=== PATIENT | male | born 1945 | race Caucasian/White ===

== ENCOUNTER 2019-12-24 07:48 | Day surgery (SDC) | payer MEDICARE, BC ==
[2019-12-24] VITALS (13 sets, daily range): BP systolic 113–139; BP diastolic 72–93
[~2019-12-24] VITALS: Ht 177.8 cm; Wt 139.4 kg
[~2019-12-24 07:48] MED LIST: ALLO100T PO; ATEN-169 PO; ATOR20TA PO; CARV-50 PO; DIGO125T PO; FENO145T38 PO; FURO-149 PO; INSU100V15 SQ; POTA20TA84 PO
[2019-12-24] MEDS ORDERED: MIDAZolam 1mg/ml 10ml vial IV ONE (09:00)
[2019-12-24] MEDS ORDERED: fentaNYL/PF 50MCG/1 ML 2ML syringe IV ONE (09:00)
[2019-12-24] MEDS ORDERED: normal saline 1000ml 1,000 ML IV SCH (09:00)
[2019-12-24] MEDS ORDERED: GLIP10TA11 PO (09:11)
[2019-12-24] MEDS ORDERED: RIVA20TA PO (09:11)
[2019-12-24] MEDS ORDERED: DIGO250T PO (09:11)
[2019-12-24] MEDS ORDERED: VALS80TA32 PO (09:11)
[2019-12-24] MEDS ORDERED: ALLO100T15 PO (09:11)
[2019-12-24] MEDS ORDERED: AMIO200T27 PO (09:11)
[2019-12-24 09:20] LABS: BASOPHILS # (AUTO) 0.1 X10'3 (0-0.2); BASOPHILS % (AUTO) 1.1 % (0-1); EOSINOPHILS # (AUTO) 0.4 X10'3 (0-0.9); EOSINOPHILS % (AUTO) 5.4 % (0-6); HEMATOCRIT 48.6 % (42.0-52.0); LYMPHOCYTES # (AUTO) 1.5 X10'3 (1.1-4.8); LYMPHOCYTES % (AUTO) 22.7 % (21-51); MEAN CORPUSCULAR HEMOGLOBIN 29.2 PG (27.0-31.0); MEAN CORPUSCULAR HGB CONC 32.9 g/dL (33.0-36.5); MEAN CORPUSCULAR VOLUME 88.9 FL (78-98); MONOCYTES # (AUTO) 0.6 X10'3 (0-0.9); MONOCYTES % (AUTO) 8.1 % (2-12); NEUTROPHILS # (AUTO) 4.3 X10'3 (1.8-7.7); NEUTROPHILS % (AUTO) 62.7 % (42-75); PLATELET COUNT 194 X10'3 (140-440); RED BLOOD COUNT 5.46 X10'6 (4.70-6.10); RED CELL DISTRIBUTION WIDTH 15.4 % (11.5-14.5); WHITE BLOOD COUNT 6.8 X10'3 (4.5-11.0)
[2019-12-24 09:35] LABS: ALBUMIN 3.3 G/DL (3.4-5.0); ANION GAP 11 (8-16); BLOOD UREA NITROGEN 47 MG/DL (7-18); CALCIUM 8.8 MG/DL (8.5-10.1); CHLORIDE 106 MMOL/L (99-107); CREATININE 1.74 MG/DL (0.60-1.10); GLUCOSE 99 MG/DL (70-104); POTASSIUM 4.4 MMOL/L (3.5-5.1); SODIUM 143 MMOL/L (135-145); TOTAL CARBON DIOXIDE 26.2 MMOL/L (24-32); eGFR 39 ML/MIN
== END 2019-12-24 12:27 | disposition home or self-care (01) ==
LOC: SSTAY O 07:48
PROVIDERS: ATTEND Internal Medicine Cardiovascular Disease
DX: I48.91 Unspecified atrial fibrillation (principal); I42.0 Dilated cardiomyopathy; I11.0 Hypertensive heart disease with heart failure; I50.9 Heart failure, unspecified; J45.909 Unspecified asthma, uncomplicated; E66.01 Morbid (severe) obesity due to excess calories; Z68.41 Body mass index [BMI] 40.0-44.9, adult; Z98.890 Other specified postprocedural states; Z79.899 Other long term (current) drug therapy; Z88.1 Allergy status to other antibiotic agents
CPT/HCPCS: 36415; 80048; 83735; 85025; 85610; 92960; 93005; 94760; J2250; J3010; J7030

== ENCOUNTER 2020-03-24 08:59 | Day surgery (SDC) | payer MEDICARE, BC ==
[2020-03-24] VITALS (10 sets, daily range): BP systolic 125–159; BP diastolic 69–90
[~2020-03-24] VITALS: Ht 177.8 cm; Wt 139.8 kg
[~2020-03-24 08:59] MED LIST changes: -ALLO100T PO; +ALLO100T15 PO; +AMIO200T27 PO; -ATEN-169 PO; -DIGO125T PO; +DIGO250T PO; +GLIP10TA11 PO; +RIVA20TA PO; +VALS80TA32 PO
[2020-03-24] MEDS ORDERED: RIVA15TA PO (09:23)
[2020-03-24] MEDS ORDERED: GLIP5TAB26 PO (09:23)
[2020-03-24] MEDS ORDERED: MULT-1085 PO (09:24)
[2020-03-24] MEDS ORDERED: MIDAZolam 1mg/ml 10ml vial IV ONE (09:30)
[2020-03-24] MEDS ORDERED: fentaNYL/PF 50MCG/1 ML 2ML syringe IV ONE (09:30)
[2020-03-24] MEDS ORDERED: normal saline 1000ml 1,000 ML IV SCH (09:30)
[2020-03-24 10:03] LABS: BASOPHILS # (AUTO) 0.1 X10'3 (0-0.2); EOSINOPHILS # (AUTO) 0.3 X10'3 (0-0.9); EOSINOPHILS % (AUTO) 4.3 % (0-6); HEMATOCRIT 42.8 % (42.0-52.0); HEMOGLOBIN 14.2 g/dl (14.0-17.9); LYMPHOCYTES # (AUTO) 1.6 X10'3 (1.1-4.8); LYMPHOCYTES % (AUTO) 24.9 % (21-51); MEAN CORPUSCULAR HEMOGLOBIN 30.5 PG (27.0-31.0); MEAN CORPUSCULAR HGB CONC 33.2 g/dL (33.0-36.5); MEAN PLATELET VOLUME 8.2 FL (7.4-10.4); MONOCYTES # (AUTO) 0.6 X10'3 (0-0.9); MONOCYTES % (AUTO) 9.1 % (2-12); NEUTROPHILS # (AUTO) 3.9 X10'3 (1.8-7.7); NEUTROPHILS % (AUTO) 60.7 % (42-75); PLATELET COUNT 199 X10'3 (140-440); RED BLOOD COUNT 4.65 X10'6 (4.70-6.10); RED CELL DISTRIBUTION WIDTH 15.2 % (11.5-14.5); WHITE BLOOD COUNT 6.4 X10'3 (4.5-11.0)
[2020-03-24 10:14] LABS: ALBUMIN 2.9 G/DL (3.4-5.0); ANION GAP 6 (8-16); BLOOD UREA NITROGEN 37 MG/DL (7-18); BUN/CREATININE RATIO 21.8 (5.4-32.0); CALCIUM 8.6 MG/DL (8.5-10.1); CHLORIDE 104 MMOL/L (99-107); GLUCOSE 151 MG/DL (70-104); MAGNESIUM 1.7 MG/DL (1.5-2.4); POTASSIUM 4.2 MMOL/L (3.5-5.1); SODIUM 139 MMOL/L (135-145); TOTAL CARBON DIOXIDE 28.9 MMOL/L (24-32); eGFR 40 ML/MIN
== END 2020-03-24 13:15 | disposition home or self-care (01) ==
LOC: SSTAY O 08:59
PROVIDERS: ATTEND Internal Medicine Cardiovascular Disease
DX: I48.19 Other persistent atrial fibrillation (principal); I11.0 Hypertensive heart disease with heart failure; I50.9 Heart failure, unspecified; I42.0 Dilated cardiomyopathy; J45.909 Unspecified asthma, uncomplicated; E66.01 Morbid (severe) obesity due to excess calories; Z68.41 Body mass index [BMI] 40.0-44.9, adult; Z79.899 Other long term (current) drug therapy; Z79.4 Long term (current) use of insulin; Z88.1 Allergy status to other antibiotic agents; Z98.890 Other specified postprocedural states
CPT/HCPCS: 36415; 80048; 82948; 83735; 85025; 85610; 92960; 93005; J2250; J3010; J7030

== ENCOUNTER 2023-07-31 12:32 | Inpatient (IN) | payer MEDICARE, BC ==
[~2023-07-31] VITALS: Ht 172.7 cm; Wt 100.0 kg
[~2023-07-31 12:32] MED LIST changes: -GLIP10TA11 PO; +GLIP5TAB26 PO; +MULT-1085 PO; +RIVA15TA PO; -RIVA20TA PO
[2023-07-31 12:49] LABS: BASOPHILS % (AUTO) 0.1 % (0-1); EOSINOPHILS % (AUTO) 0 % (0-6); HEMOGLOBIN 15.4 g/dl (14.0-17.9); LYMPHOCYTES # (AUTO) 0.4 X10'3 (1.1-4.8); LYMPHOCYTES % (AUTO) 2.2 % (21-51); MEAN CORPUSCULAR HEMOGLOBIN 29.4 PG (27.0-31.0); MEAN CORPUSCULAR HGB CONC 32.1 g/dL (33.0-36.5); MEAN CORPUSCULAR VOLUME 91.5 FL (78-98); MEAN PLATELET VOLUME 9.1 FL (7.4-10.4); MONOCYTES % (AUTO) 5.7 % (2-12); NEUTROPHILS # (AUTO) 15.5 X10'3 (1.8-7.7); PLATELET COUNT 146 X10'3 (140-440); RED BLOOD COUNT 5.25 X10'6 (4.70-6.10); RED CELL DISTRIBUTION WIDTH 15.3 % (11.5-14.5); WHITE BLOOD COUNT 16.9 X10'3 (4.5-11.0)
[2023-07-31 13:05] LABS: ANION GAP 20 (8-16); BLOOD UREA NITROGEN 124 MG/DL (7-18); BUN/CREATININE RATIO 33.5 (10.0-20.0); CALCIUM 9.2 MG/DL (8.5-10.1); CHLORIDE 107 MMOL/L (99-107); GLUCOSE 210 MG/DL (70-104); POTASSIUM 4.7 MMOL/L (3.5-5.1); SODIUM 138 MMOL/L (135-145); eCRCL 16 ML/MIN; eGFR 16 ML/MIN
[2023-07-31 13:06] LABS: APTT 39 SECONDS (22-32); INR 1.4 INR; PROTHROMBIN TIME 14.8 SECONDS (9.0-12.0)
[2023-07-31 13:10] LABS: TOTAL CARBON DIOXIDE 11.1 MMOL/L (24-32)
[2023-07-31] MEDS: normal saline 1000ML IV soln IV ONE (13:47)
[2023-07-31 14:35] LABS: TOTAL CELLS COUNTED 100
[2023-07-31 14:36] LABS: PLATELET ESTIMATE NORMAL
[2023-07-31] MEDS: CefTRIAXone 2gm/D5W 50ml BAG 50 ML IV ONE (14:46)
[2023-07-31] MEDS: azithromycin/NS 500mg/250ml 250 ML IV ONE (14:56)
[2023-07-31 15:23] LABS: MAGNESIUM 2.2 MG/DL (1.5-2.4)
[2023-07-31] MEDS: LidoCAINE 2% Topical Jelly 11mL syringe (UROJET) TOP ONE (15:27)
[2023-07-31 15:53] LABS: BILIRUBIN,URINE SMALL (Neg); CLARITY,URINE CLEAR (Clear); COLOR,URINE YELLOW (Yellow); GLUCOSE, URINE NEGATIVE (Neg); KETONES,URINE NEGATIVE (Neg); LEUKOCYTE ESTERASE ,URINE NEGATIVE (Neg); NITRITES, URINE NEGATIVE (Neg); OCCULT BLOOD,URINE NEGATIVE (Neg); PROTEIN,URINE NEGATIVE (Neg); UROBILINOGEN,URINE 0.2 E.U/dL (0.2-1.0)
[2023-07-31 16:02] LABS: UA COLLECTION TYPE OTHER
[2023-07-31 18:02] LABS: CREATINE KINASE 169 U/L (39-308)
[2023-07-31] MEDS: aspirin 325mg tablet PO ONE (20:16)
[2023-07-31] MEDS ORDERED: magnesium Cl slow-release 64mg tablet PO PRN (20:20)
[2023-07-31] MEDS ORDERED: acetaminophen 325mg tablet PO PRN (20:20)
[2023-07-31] MEDS ORDERED: mag hydrox/Alum hydrox/simeth 30ml oral suspension PO PRN (20:20)
[2023-07-31] MEDS ORDERED: magnesium hydroxide 30ml (MOM) UD suspension PO PRN (20:20)
[2023-07-31] MEDS ORDERED: potassium Cl 40MEQ/1/2NS 520ml 520 ML IV PRN (20:20)
[2023-07-31] MEDS ORDERED: magnesium 4gm in 100ml NS 100 ML IV PRN (20:20)
[2023-07-31] MEDS ORDERED: potassium Cl 20 mEq SR tablet PO PRN ×2 (20:20)
[2023-07-31] MEDS: normal saline 1000ml 1,000 ML IV SCH (20:20)
[2023-07-31] MEDS ORDERED: magnesium 2GM in 50ml NS 50 ML IV PRN (20:20)
[2023-07-31] MEDS ORDERED: ondansetron/PF 4mg/2ml inj IV PRN (20:20)
[2023-07-31] MEDS ORDERED: SPIR25TA5 PO (20:23)
[2023-07-31] MEDS ORDERED: CARV6.253 PO (20:23)
[2023-07-31] MEDS ORDERED: ATOR20TA66 PO (20:23)
[2023-07-31] MEDS ORDERED: FURO40TA4 PO (20:23)
[2023-07-31] MEDS ORDERED: LOSA100T58 PO (20:23)
[2023-07-31] MEDS ORDERED: DIGO125T PO (20:23)
[2023-07-31] MEDS ORDERED: POTA-206 PO (20:23)
[2023-07-31] MEDS ORDERED: NYSTATIN 30 GM POWDER TP SCH (21:00)
[2023-07-31 21:16] LABS: ABG BASE EXCESS -16.8 mmol/L (-2.0-2.0); ABG HCO3 9.7 mmol/L (22.0-26.0); ABG OXYGEN SATURATION 97.6 % (94-97); ABG PCO2 (T) 25.1 mmHg (35.0-48.0); ABG PO2 (T) 97.1 mmHg (75.0-100.0); ALLEN'S TEST Modified; FCOHb 0.4 % (0.0-3.9); FHHb 2.4 % (0.0-5.0); FMetHb 0.3 % (0.0-1.5); FO2Hb 96.9 % (94-97); MODE ROOM AIR; PATIENT TEMPERATURE 35.9; TOTAL HEMOGLOBIN 15.5 G/dl (14.0-17.9)
[2023-07-31 22:39] LABS: BASOPHILS % (AUTO) 0.2 % (0-1); EOSINOPHILS % (AUTO) 0 % (0-6); LYMPHOCYTES # (AUTO) 0.5 X10'3 (1.1-4.8); LYMPHOCYTES % (AUTO) 3.2 % (21-51); MEAN CORPUSCULAR HEMOGLOBIN 29.4 PG (27.0-31.0); MEAN CORPUSCULAR HGB CONC 32.6 g/dL (33.0-36.5); MEAN CORPUSCULAR VOLUME 90.2 FL (78-98); MEAN PLATELET VOLUME 9.2 FL (7.4-10.4); MONOCYTES # (AUTO) 0.8 X10'3 (0-0.9); MONOCYTES % (AUTO) 5.4 % (2-12); NEUTROPHILS # (AUTO) 13.4 X10'3 (1.8-7.7); NEUTROPHILS % (AUTO) 91.2 % (42-75); PLATELET COUNT 129 X10'3 (140-440); RED BLOOD COUNT 4.77 X10'6 (4.70-6.10); RED CELL DISTRIBUTION WIDTH 15.4 % (11.5-14.5); WHITE BLOOD COUNT 14.7 X10'3 (4.5-11.0)
[2023-07-31 22:45] LABS: HEMOGLOBIN A1C 6.7 % (4.5-6.2)
[2023-07-31] MEDS: nystatin 15 GM powder TP SCH (22:53)
[2023-07-31 22:55] LABS: D-DIMER 7.75 MG/L FEU (0-0.50)
[2023-07-31 23:03] LABS: ALANINE AMINOTRANSFERASE 61 U/L (12-78); ALBUMIN 2.6 G/DL (3.4-5.0); ALBUMIN/GLOBULIN RATIO 0.8 (1.1-1.5); ALKALINE PHOSPHATASE 100 IU/L (46-116); ANION GAP 19 (8-16); ASPARTATE AMINO TRANSFERASE 33 U/L (10-37); BILIRUBIN,TOTAL 0.5 MG/DL (0.1-1.0); BLOOD UREA NITROGEN 128 MG/DL (7-18); BUN/CREATININE RATIO 36.6 (10.0-20.0); CALCIUM 8.5 MG/DL (8.5-10.1); CHLORIDE 109 MMOL/L (99-107); DIGOXIN 0.5 NG/ML (0.9-1.9); GLUCOSE 179 MG/DL (70-104); MAGNESIUM 2.2 MG/DL (1.5-2.4); PHOSPHORUS 6.1 MG/DL (2.3-4.5); POTASSIUM 4.7 MMOL/L (3.5-5.1); PRO BRAIN NATRIURETIC PEPTIDE 14434 PG/ML (0-450); SODIUM 141 MMOL/L (135-145); TOTAL PROTEIN 5.8 G/DL (6.4-8.2); eCRCL 17 ML/MIN; eGFR 17 ML/MIN
[2023-07-31 23:08] LABS: TOTAL CARBON DIOXIDE 13.1 MMOL/L (24-32)
[2023-08-01] MEDS: heparin, porcine 5000 units/ml vial SQ SCH (00:22)
[2023-08-01 01:42] LABS: ALBUMIN 2.6 G/DL (3.4-5.0); ANION GAP 18 (8-16); BLOOD UREA NITROGEN 126 MG/DL (7-18); CALCIUM 8.5 MG/DL (8.5-10.1); CHLORIDE 109 MMOL/L (99-107); GLUCOSE 165 MG/DL (70-104); POTASSIUM 4.7 MMOL/L (3.5-5.1); SODIUM 140 MMOL/L (135-145); eCRCL 17 ML/MIN; eGFR 17 ML/MIN
[2023-08-01] MEDS: sodium bicarbonate (8.4%) inj. 100 MEQ in dextrose 5%-water 1,000 ML IV SCH (01:54)
[2023-08-01 01:56] LABS: TOTAL CARBON DIOXIDE 12.6 MMOL/L (24-32)
[2023-08-01] MEDS ORDERED: dextrose 50%-water 50ml dispensing syringe IV PRN ×2 (02:25)
[2023-08-01] MEDS ORDERED: glucagon, human recombinant 1mg kit SUBCUT PRN (02:25)
[2023-08-01] MEDS ORDERED: DEXTROSE 15 GM of carb/4 tabs (each vial/BOTTLE has 4 tablets) PO PRN ×2 (02:25)
[2023-08-01] MEDS: VANCOMYCIN 1,500MG in normal saline IV soln 300 ML IV ONE (03:13)
[2023-08-01] MEDS: MESSAGE TO PHARMACY PO ONE (03:21)
[2023-08-01 06:00] VITALS: BP 104/46; PULSE 86; RESP 21; TEMP 98; O2SAT 97
[2023-08-01 07:06] LABS: BASOPHILS % (AUTO) 0.1 % (0-1); EOSINOPHILS % (AUTO) 0 % (0-6); HEMOGLOBIN 13.5 g/dl (14.0-17.9); LYMPHOCYTES # (AUTO) 0.4 X10'3 (1.1-4.8); LYMPHOCYTES % (AUTO) 2.7 % (21-51); MEAN CORPUSCULAR HEMOGLOBIN 29.2 PG (27.0-31.0); MEAN CORPUSCULAR HGB CONC 32.1 g/dL (33.0-36.5); MEAN PLATELET VOLUME 9.4 FL (7.4-10.4); MONOCYTES # (AUTO) 0.8 X10'3 (0-0.9); MONOCYTES % (AUTO) 6.2 % (2-12); PLATELET COUNT 134 X10'3 (140-440); RED BLOOD COUNT 4.62 X10'6 (4.70-6.10); RED CELL DISTRIBUTION WIDTH 15.5 % (11.5-14.5); WHITE BLOOD COUNT 13.2 X10'3 (4.5-11.0)
[2023-08-01 07:20] LABS: ALANINE AMINOTRANSFERASE 49 U/L (12-78); ALBUMIN 2.4 G/DL (3.4-5.0); ALBUMIN/GLOBULIN RATIO 0.9 (1.1-1.5); ALKALINE PHOSPHATASE 93 IU/L (46-116); ANION GAP 18 (8-16); ASPARTATE AMINO TRANSFERASE 33 U/L (10-37); BILIRUBIN,TOTAL 0.5 MG/DL (0.1-1.0); BLOOD UREA NITROGEN 117 MG/DL (7-18); BUN/CREATININE RATIO 32.8 (10.0-20.0); CALCIUM 8.3 MG/DL (8.5-10.1); CHLORIDE 112 MMOL/L (99-107); CREATININE 3.57 MG/DL (0.60-1.10); GLUCOSE 173 MG/DL (70-104); SODIUM 143 MMOL/L (135-145); TOTAL PROTEIN 5.2 G/DL (6.4-8.2); eCRCL 17 ML/MIN; eGFR 17 ML/MIN
[2023-08-01 07:24] LABS: TOTAL CARBON DIOXIDE 13.4 MMOL/L (24-32)
[2023-08-01] MEDS: SODIUM BICARBONATE IV SCH (07:30)
[2023-08-01] MEDS: DEXTROSE 5% IV SCH (07:30)
[2023-08-01] MEDS: WATER IV SCH (07:30)
[2023-08-01] MEDS: K and/or MAG REPLACEMENT MC SCH (08:00)
[2023-08-01] MEDS: calcium acetate 667mg (PhosLO) capsule PO SCH (08:18)
[2023-08-01 11:00] VITALS: BP 99/47; PULSE 83; RESP 18; TEMP 97.5; O2SAT 97
[2023-08-01] MEDS: CefTRIAXone/D5W-Rocephin 1gm 50 ML IV SCH (13:07)
[2023-08-01 15:00] VITALS: BP 108/48; PULSE 85; RESP 16; TEMP 98.4; O2SAT 97
[2023-08-01 18:00] VITALS: BP 105/53; PULSE 88; RESP 21; TEMP 97; O2SAT 97
[2023-08-01] MEDS: NUT.TX.IMP.RENAL FXN,LAC-REDUC (Nepro) 237 ML VANILLA PO SCH (18:00)
[2023-08-01 19:00] VITALS: RESP 20; O2SAT 98
[2023-08-01] MEDS: insulin Lispro (HumaLOG) vial - multi-dose SQ SCH (19:14)
[2023-08-01] MEDS: insulin glargine (Lantus) pen - multi-dose SQ SCH (21:03)
[2023-08-01 22:00] VITALS: BP 115/62; PULSE 93; RESP 25; TEMP 97.6; O2SAT 97
[2023-08-02] MEDS: vancomycin inj 500 MG in normal saline 100ml IV soln 100 ML IV SCH (01:55)
[2023-08-02 02:00] VITALS: BP 112/58; PULSE 92; RESP 24; TEMP 97; O2SAT 97
[2023-08-02 05:36] LABS: LYMPHOCYTES # (AUTO) 0.7 X10'3 (1.1-4.8); MEAN CORPUSCULAR VOLUME 89.5 FL (78-98); NEUTROPHILS # (AUTO) 13.1 X10'3 (1.8-7.7)
[2023-08-02 05:38] LABS: BASOPHILS % (AUTO) 0.1 % (0-1); EOSINOPHILS % (AUTO) 0.2 % (0-6); HEMATOCRIT 39.4 % (42.0-52.0); LYMPHOCYTES % (AUTO) 4.9 % (21-51); MEAN CORPUSCULAR HEMOGLOBIN 29.4 PG (27.0-31.0); MEAN CORPUSCULAR HGB CONC 32.9 g/dL (33.0-36.5); MEAN PLATELET VOLUME 9.8 FL (7.4-10.4); MONOCYTES # (AUTO) 0.9 X10'3 (0-0.9); MONOCYTES % (AUTO) 5.9 % (2-12); NEUTROPHILS % (AUTO) 88.9 % (42-75); PLATELET COUNT 110 X10'3 (140-440); RED CELL DISTRIBUTION WIDTH 15.4 % (11.5-14.5); WHITE BLOOD COUNT 14.7 X10'3 (4.5-11.0)
[2023-08-02 06:00] VITALS: BP 126/62; PULSE 94; RESP 18; TEMP 97.9; O2SAT 96
[2023-08-02 06:07] LABS: ALANINE AMINOTRANSFERASE 42 U/L (12-78); ALBUMIN 2.1 G/DL (3.4-5.0); ALBUMIN/GLOBULIN RATIO 0.7 (1.1-1.5); ALKALINE PHOSPHATASE 101 IU/L (46-116); ANION GAP 16 (8-16); ASPARTATE AMINO TRANSFERASE 27 U/L (10-37); BILIRUBIN,TOTAL 0.4 MG/DL (0.1-1.0); BLOOD UREA NITROGEN 121 MG/DL (7-18); BUN/CREATININE RATIO 37.2 (10.0-20.0); CALCIUM 8.1 MG/DL (8.5-10.1); CHLORIDE 107 MMOL/L (99-107); CREATININE 3.25 MG/DL (0.60-1.10); GLUCOSE 214 MG/DL (70-104); POTASSIUM 4.4 MMOL/L (3.5-5.1); SODIUM 138 MMOL/L (135-145); TOTAL CARBON DIOXIDE 15.2 MMOL/L (24-32); TOTAL PROTEIN 5.3 G/DL (6.4-8.2); eCRCL 18 ML/MIN; eGFR 19 ML/MIN
[2023-08-02] MEDS: aspirin 81mg tab.chew PO SCH (08:12)
[2023-08-02 08:29] LABS: ANISOCYTOSIS 1+; PLATELET ESTIMATE DECREASED
[2023-08-02] MEDS ORDERED: calcium acetate 667mg (PhosLO) capsule PO SCH (18:00)
[2023-08-03] VITALS (7 sets, daily range): BP systolic 131–148; BP diastolic 63–79; PULSE 72–106; RESP 17–24; TEMP 97–97.9; O2SAT 95–98
[2023-08-03 06:17] LABS: HEMOGLOBIN 13.1 g/dl (14.0-17.9); MEAN CORPUSCULAR HGB CONC 33.2 g/dL (33.0-36.5); MEAN PLATELET VOLUME 9.8 FL (7.4-10.4); NEUTROPHILS # (AUTO) 15.9 X10'3 (1.8-7.7)
[2023-08-03 06:18] LABS: BASOPHILS % (AUTO) 0.1 % (0-1); EOSINOPHILS # (AUTO) 0.1 X10'3 (0-0.9); EOSINOPHILS % (AUTO) 0.8 % (0-6); HEMATOCRIT 39.6 % (42.0-52.0); LYMPHOCYTES # (AUTO) 0.8 X10'3 (1.1-4.8); LYMPHOCYTES % (AUTO) 4.5 % (21-51); MEAN CORPUSCULAR HEMOGLOBIN 29.8 PG (27.0-31.0); MEAN CORPUSCULAR VOLUME 89.8 FL (78-98); MONOCYTES # (AUTO) 1.1 X10'3 (0-0.9); MONOCYTES % (AUTO) 6.4 % (2-12); NEUTROPHILS % (AUTO) 88.2 % (42-75); PLATELET COUNT 119 X10'3 (140-440); RED CELL DISTRIBUTION WIDTH 15.7 % (11.5-14.5)
[2023-08-03 06:51] LABS: ALANINE AMINOTRANSFERASE 37 U/L (12-78); ALBUMIN 1.9 G/DL (3.4-5.0); ALBUMIN/GLOBULIN RATIO 0.5 (1.1-1.5); ALKALINE PHOSPHATASE 131 IU/L (46-116); ANION GAP 14 (8-16); ASPARTATE AMINO TRANSFERASE 23 U/L (10-37); BILIRUBIN,TOTAL 0.4 MG/DL (0.1-1.0); BLOOD UREA NITROGEN 104 MG/DL (7-18); BUN/CREATININE RATIO 43.7 (10.0-20.0); CALCIUM 8.4 MG/DL (8.5-10.1); CHLORIDE 107 MMOL/L (99-107); CREATININE 2.38 MG/DL (0.60-1.10); GLUCOSE 192 MG/DL (70-104); POTASSIUM 3.9 MMOL/L (3.5-5.1); SODIUM 140 MMOL/L (135-145); TOTAL CARBON DIOXIDE 19.4 MMOL/L (24-32); TOTAL PROTEIN 5.4 G/DL (6.4-8.2); eCRCL 25 ML/MIN; eGFR 27 ML/MIN
[2023-08-03 07:44] LABS: ANISOCYTOSIS 1+; PLATELET ESTIMATE DECREASED; POLYCHROMASIA FEW; TOTAL CELLS COUNTED 100
[2023-08-03 11:04] LABS: THYROID STIMULATING HORMONE < 0.01 ulU/ml (0.34-4.50)
[2023-08-03] MEDS: furosemide 20MG tablet PO SCH (15:25)
[2023-08-03 17:02] LABS: TOTAL PROTEIN 24HR,URINE 804.7 MG/24HR (28-141); UREA NITROGEN 24HR,URINE 20.7 GM/24HR (7-20)
[2023-08-04 02:00] VITALS: BP 135/72; PULSE 101; RESP 17; TEMP 98.1; O2SAT 96
[2023-08-04] MEDS ORDERED: VANCOMYCIN 750MG IV in NS 250 ML IV SCH (02:00)
[2023-08-04 06:50] LABS: BASOPHILS # (AUTO) 0.1 X10'3 (0-0.2); BASOPHILS % (AUTO) 0.6 % (0-1); EOSINOPHILS # (AUTO) 0.3 X10'3 (0-0.9); EOSINOPHILS % (AUTO) 1.5 % (0-6); HEMATOCRIT 44.1 % (42.0-52.0); HEMOGLOBIN 14.2 g/dl (14.0-17.9); LYMPHOCYTES # (AUTO) 1.2 X10'3 (1.1-4.8); LYMPHOCYTES % (AUTO) 6.5 % (21-51); MEAN CORPUSCULAR HEMOGLOBIN 29.3 PG (27.0-31.0); MEAN CORPUSCULAR HGB CONC 32.2 g/dL (33.0-36.5); MONOCYTES # (AUTO) 1.5 X10'3 (0-0.9); MONOCYTES % (AUTO) 8.4 % (2-12); NEUTROPHILS # (AUTO) 15.2 X10'3 (1.8-7.7); PLATELET COUNT 155 X10'3 (140-440); RED BLOOD COUNT 4.84 X10'6 (4.70-6.10); RED CELL DISTRIBUTION WIDTH 16.1 % (11.5-14.5); WHITE BLOOD COUNT 18.3 X10'3 (4.5-11.0)
[2023-08-04 07:05] VITALS: BP 123/77; PULSE 105; RESP 17; TEMP 97.3; O2SAT 99
[2023-08-04 07:35] VITALS: RESP 17; O2SAT 95
[2023-08-04 10:13] LABS: ALANINE AMINOTRANSFERASE 38 U/L (12-78); ALBUMIN 1.9 G/DL (3.4-5.0); ALBUMIN/GLOBULIN RATIO 0.5 (1.1-1.5); ALKALINE PHOSPHATASE 152 IU/L (46-116); ANION GAP 10 (8-16); ASPARTATE AMINO TRANSFERASE 29 U/L (10-37); BILIRUBIN,TOTAL 0.5 MG/DL (0.1-1.0); BLOOD UREA NITROGEN 93 MG/DL (7-18); BUN/CREATININE RATIO 48.2 (10.0-20.0); CALCIUM 8.7 MG/DL (8.5-10.1); CHLORIDE 105 MMOL/L (99-107); CREATININE 1.93 MG/DL (0.60-1.10); GLUCOSE 246 MG/DL (70-104); SODIUM 141 MMOL/L (135-145); TOTAL CARBON DIOXIDE 26.4 MMOL/L (24-32); TOTAL PROTEIN 5.8 G/DL (6.4-8.2); eCRCL 31 ML/MIN; eGFR 34 ML/MIN
[2023-08-04 10:16] LABS: TOTAL CELLS COUNTED 100
[2023-08-04 10:17] LABS: ANISOCYTOSIS 1+; PLATELET ESTIMATE NORMAL
[2023-08-04 10:18] LABS: ACANTHOCYTES FEW; ELLIPTOCYTES FEW; POLYCHROMASIA FEW
[2023-08-04 11:41] VITALS: BP 97/49; PULSE 83; RESP 25; TEMP 97.6; O2SAT 98
[2023-08-04] MEDS ORDERED: insulin glargine (Lantus) pen - multi-dose SQ SCH (12:00)
[2023-08-04 13:28] VITALS: BP 132/68; PULSE 90; RESP 21; TEMP 97.6; O2SAT 95
[2023-08-04 16:32] VITALS: BP 115/63; PULSE 97; RESP 19; TEMP 97; O2SAT 97
[2023-08-04] MEDS ORDERED: carvedilol 6.25mg tablet PO SCH (20:00)
[2023-08-04] MEDS ORDERED: atorvastatin 20mg tablet PO SCH (21:00)
[2023-08-05] MEDS ORDERED: multivitamins, therapeutics tablet PO SCH (08:00)
[2023-08-05] MEDS ORDERED: amiodarone 200mg tablet PO SCH (08:00)
[2023-08-05] MEDS ORDERED: fenofibrate 145mg tablet PO SCH (08:00)
[2023-08-05] MEDS ORDERED: rivaroxaban 15mg tablet PO SCH (08:00)
[2023-08-06] MEDS ORDERED: potassium Cl 20 mEq SR tablet PO SCH (08:00)
[2023-08-07] MEDS ORDERED: VANCOMYCIN LEVEL IV ONE (02:30)
[2023-08-15] MEDS ORDERED: ZAR2.5T PO (11:51)
[2023-08-15] MEDS ORDERED: INSU200I SQ (11:51)
[2023-08-15] MEDS ORDERED: ACET-1013 PO (11:51)
[2023-08-15] MEDS ORDERED: DAPA5TAB PO (11:51)
[2023-08-15] MEDS ORDERED: POLY119P2 PO (11:51)
[2023-08-15] MEDS ORDERED: ASPI81TA52 PO (11:51)
[2023-08-15] MEDS ORDERED: POTA-206 PO (11:51)
[2023-08-15] MEDS ORDERED: PHO667C PO (11:51)
[2023-08-15] MEDS ORDERED: LIDO40SO4 TOP (11:51)
[2023-08-15] MEDS ORDERED: DOCU100C40 PO (12:37)
== END 2023-08-04 16:15 | DRG 64 ==
LOC: ER 12:33 → ED HOLD 20:23 → EDBEDREQSVC 08-01 05:02 → EDBEDREQ 08-01 05:02 → PCU 3S 08-01 05:50
PROVIDERS: ADMIT Internal Medicine; ATTEND Family Medicine
DX: I63.9 Cerebral infarction, unspecified (principal); G93.41 Metabolic encephalopathy; N17.0 Acute kidney failure with tubular necrosis; I13.0 Hypertensive heart and chronic kidney disease with heart failure and stage 1 through stage 4 chronic kidney disease, or unspecified chronic kidney disease; E87.29 Other acidosis; I50.32 Chronic diastolic (congestive) heart failure; N17.9 Acute kidney failure, unspecified; E86.0 Dehydration; I48.91 Unspecified atrial fibrillation; N18.30 Chronic kidney disease, stage 3 unspecified; E11.22 Type 2 diabetes mellitus with diabetic chronic kidney disease; E66.01 Morbid (severe) obesity due to excess calories; Z68.33 Body mass index [BMI] 33.0-33.9, adult; E66.9 Obesity, unspecified; E87.8 Other disorders of electrolyte and fluid balance, not elsewhere classified; I45.10 Unspecified right bundle-branch block; Z66 Do not resuscitate; Z79.899 Other long term (current) drug therapy
CPT/HCPCS: 36415; 36600; 70450; 71045; 74176; 80048; 80053; 80162; 81003; 82550; 82570; 82803; 82948; 83036; 83605; 83735; 83880; 84100; 84145; 84156; 84443; 84484; 84560; 85007; 85008; 85018; 85025; 85379; 85610; 85730; 87040; 87077; 87081; 87186; 92508; 92616; 93005; 93306; 93880; 97161; 97530; 99285; A4314; A5200; A6212; A6213; A6250; A6258; A6449; C1758; G0378; J0456; J0696; J1644; J3370; J3490; J7030; J7040; J7070